=== PATIENT | female | born 2000 | race African-American/Black ===

== ENCOUNTER 2019-03-03 23:20 | Emergency (ER) | payer SELFPAY ==
[~2019-03-03] VITALS: Ht 170.2 cm; Wt 68.0 kg
[2019-03-03 23:40] VITALS: BP 107/68
[2019-03-04] MEDS ORDERED: AMOX1TAB61 PO (00:25)
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
[2019-03-04] MEDS ORDERED: NAPROXEN 500 MG TABLET PO ONE (01:00)
[2019-03-04] MEDS ORDERED: HYDROcodone/APAP 5/325MG 1 TAB TABLET PO ONE (01:00)
[2019-03-04] MEDS ORDERED: DIPHTH,PERTUSS(ACELL),TET TOX 0.5 ML DISP.SYRIN. VAX IM ONE (01:00)
[2019-03-04] MEDS ORDERED: AMOXICILLIN/K CLAV 875/125MG TABLET. PO ONE (01:00)
== END 2019-03-04 01:00 | disposition home or self-care (01) ==
LOC: ER 23:20
DX: S71.152A Open bite, left thigh, initial encounter (principal); W50.3XXA Accidental bite by another person, initial encounter; Y93.89 Activity, other specified; Y92.89 Other specified places as the place of occurrence of the external cause; Y99.8 Other external cause status
CPT/HCPCS: 90471; 90715; 99284